=== PATIENT | male | born 1965 | race African-American/Black ===

== ENCOUNTER 2017-07-24 17:50 | Emergency (ER) | payer BC, OTHER ==
[~2017-07-24] VITALS: Ht 182.9 cm; Wt 147.4 kg
[2017-07-24 19:12] LABS: HEMOGLOBIN 15.8 gm/dL (14.0-18.0); MCH 32.3 pg (26.0-34.0); MCHC 35.1 g/dL (28.0-37.0); RBC 4.89 mil/uL (4.50-6.00); RDW 13.4 % (10.5-14.5); WBC 8.6 thou/uL (4.0-11.0)
[2017-07-24 19:26] LABS: POTASSIUM 4.2 mmol/L (3.5-5.1)
[2017-07-24 19:27] LABS: CALCIUM 9.2 mg/dL (8.5-10.1); CREATININE 1.3 mg/dL (0.7-1.3)
[2017-07-24 19:30] LABS: ALBUMIN 3.6 g/dL (3.4-5.0); TOTAL BILIRUBIN 0.4 mg/dL (<0.1-1.0); TOTAL PROTEIN 7.3 g/dL (6.4-8.2)
[2017-07-24 20:26] LABS: URINE BILIRUBIN NEGATIVE (Negative); URINE BLOOD TRACE (Negative); URINE CLARITY CLEAR; URINE COLOR YELLOW; URINE GLUCOSE-RANDOM* 3+ (Negative); URINE KETONES NEGATIVE (Negative); URINE LEUKOCYTES-REFLEX NEGATIVE (Negative); URINE NITRITE-REFLEX NEGATIVE (Negative); URINE PROTEIN (DIPSTICK) NEGATIVE (Negative); URINE UROBILINOGEN 0.2 E.U./dl (0.2-1.0)
[2017-07-24] MEDS ORDERED: METFORMIN HCL500 MG PO (21:27)
== END 2017-07-24 21:55 | disposition home or self-care (01) ==
LOC: ER 17:50
PROVIDERS: Emergency Medicine
DX: E11.9 Type 2 diabetes mellitus without complications (principal)